=== PATIENT | male | born 1955 | race Caucasian/White ===

== ENCOUNTER 2020-05-26 10:28 | Observation (INO) ==
[2020-05-26] MEDS ORDERED: HEPARIN 5,000 UNIT/1 ML VIAL IV ONE (10:43)
[2020-05-26] MEDS ORDERED: ASPIRIN 325 MG TABLET PO STA (10:43)
[2020-05-26] MEDS ORDERED: MORPHINE 4 MG/1 ML VIAL ONE (10:48)
[2020-05-26] MEDS ORDERED: ONDANSETRON 4 MG/2 ML VIAL ONE (10:48)
[2020-05-26] MEDS ORDERED: ONDANSETRON 4 MG/2 ML VIAL IV STA (10:50)
[2020-05-26] MEDS ORDERED: MORPHINE 4 MG/1 ML VIAL IV STA (10:50)
[2020-05-26] MEDS ORDERED: TICAGRELOR 90 MG TABLET PO STA (10:51)
[2020-05-26 10:54] LABS: Basophils # 0.1 10*3/uL (0.0-0.2); Basophils % 0.8 % (0.0-0.8); Eosinophils # 0.2 10*3/uL (0.0-0.87); Eosinophils % 2.3 % (0.00-10.9); Hematocrit 44.7 VOL% (42.0-52.0); Hemoglobin 14.6 GM/DL (14.0-18.0); Immature Granulocytes % 0.3 %; Immature Granulocytes Absolute 0.02 #; Lymphocytes # 2.6 10*3/uL (1.4-4.0); Lymphocytes % 33.1 % (21.2-54.2); Mean Corpuscular HGB Conc 32.7 GM/DL (32-36); Mean Corpuscular Volume 94.1 FL (87-102); Mean Platelet Volume 8.6 FL (9.6-12.0); Neutrophils % 55.5 % (38.7-73.9); Platelet Count 238 T/CUMM (130-400); Red Blood Count 4.75 MC/CUMM (3.8-5.5); Red Cell Distribution Width 13.2 % (9.3-17.3); White Blood Count 7.9 T/CUMM (4-12)
[2020-05-26 11:09] LABS: PT Patient Result 10.3 SECS (9.8-11.9); Partial Thromboplastin Time 29.5 SECS (23.9-33.8)
[2020-05-26 11:12] LABS: Eosinophils 2 % (0-10); Lymphocytes 22 % (20-55); Platelet Estimate Adequate; Segmented Neutrophils 71 % (50-85); Total Cells Counted 100
[2020-05-26] MEDS ORDERED: ACETAMINOPHEN 325 MG TABLET PO PRN (11:21)
[2020-05-26] MEDS ORDERED: MAGNESIUM SULF RIDER 4 GM in PREMIX 1 EACH IV PRN (11:21)
[2020-05-26] MEDS ORDERED: BISACODYL 5 MG TABLET PO PRN (11:21)
[2020-05-26] MEDS ORDERED: MAGNESIUM SULF RIDER 2 GM in PREMIX 1 EACH IV PRN (11:21)
[2020-05-26] MEDS ORDERED: DOCUSATE SODIUM 100 MG CAPSULE PO PRN (11:21)
[2020-05-26] MEDS ORDERED: guaiFENesin/DM ER 600-30 MG TABLET PO PRN (11:21)
[2020-05-26] MEDS ORDERED: diphenhydrAMINE CAP 25 MG CAPSULE PO PRN (11:21)
[2020-05-26] MEDS ORDERED: ALUMINUM/MAGNES/SIMETH MAX STR 30 ML UDCUP PO PRN (11:21)
[2020-05-26] MEDS ORDERED: ONDANSETRON 4 MG/2 ML VIAL IV PRN (11:21)
[2020-05-26] MEDS ORDERED: PROMETHAZINE 25 MG TABLET PO PRN (11:21)
[2020-05-26] MEDS ORDERED: ZALEPLON 5 MG CAPSULE PO PRN (11:21)
[2020-05-26] MEDS ORDERED: hydrALAZINE 20 MG/1 ML VIAL IV PRN (11:21)
[2020-05-26] MEDS ORDERED: MORPHINE 4 MG/1 ML VIAL IV PRN (11:21)
[2020-05-26 11:28] LABS: Albumin 3.7 G/DL (3.4-5.0); Bilirubin,Total 0.9 MG/DL (0.2-1.0); Calcium 8.6 MG/DL (8.5-10.1); Osmolality,Calculated 275.7 MOS/KG (273-304); Total Protein 8.2 G/DL (6.4-8.3)
[2020-05-26] MEDS ORDERED: SODIUM CHLORIDE 0.45% 1,000 ML IV SCH (11:30)
[2020-05-26] MEDS: ALBUTEROL 2.5 MG/3 ML NEB RESP TX SCH ×2 (14:05→20:00)
[2020-05-26] MEDS ORDERED: carvediloL 3.125 MG TABLET PO SCH (21:00)
[2020-05-27] MEDS: ALBUTEROL 2.5 MG/3 ML NEB RESP TX SCH (02:05)
[2020-05-27 04:45] LABS: Basophils # 0.1 10*3/uL (0.0-0.2); Basophils % 0.8 % (0.0-0.8); Eosinophils # 0.2 10*3/uL (0.0-0.87); Eosinophils % 2.7 % (0.00-10.9); Hematocrit 40.1 VOL% (42.0-52.0); Hemoglobin 13.1 GM/DL (14.0-18.0); Immature Granulocytes % 0.2 %; Immature Granulocytes Absolute 0.01 #; Lymphocytes # 2.4 10*3/uL (1.4-4.0); Lymphocytes % 35.9 % (21.2-54.2); Mean Corpuscular HGB Conc 32.7 GM/DL (32-36); Mean Corpuscular Volume 92.6 FL (87-102); Mean Platelet Volume 8.6 FL (9.6-12.0); Monocytes % 7.9 % (1.7-12.7); Neutrophils % 52.5 % (38.7-73.9); Platelet Count 193 T/CUMM (130-400); Red Blood Count 4.33 MC/CUMM (3.8-5.5); Red Cell Distribution Width 13.2 % (9.3-17.3); White Blood Count 6.6 T/CUMM (4-12)
[2020-05-27 05:10] VITALS: BP 107/56
[2020-05-27 05:12] LABS: Blood Urea Nitrogen 14 MG/DL (7-18); Calcium 8.3 MG/DL (8.5-10.1); Carbon Dioxide 24 MMOL/L (21-32); Estimated Glom Filtration Rate 85 ML/MIN; Glucose 153 MG/DL (74-106); HDL Cholesterol 34 MG/DL (40-60); Osmolality,Calculated 284.3 MOS/KG (273-304); Potassium 3.8 MMOL/L (3.5-5.1); Risk Ratio 3.94; Sodium 141 MMOL/L (136-145); Triglycerides 108 MG/DL (2-150); Troponin I < 0.015 NG/ML (0.00-0.045); VLDL CHOLESTEROL 21.6 MG/DL
[2020-05-27 06:44] LABS: Barbiturates Screen,Urine Negative (Negative); Benzodiazepines Screen,Urine Negative (Negative); Cannabinoid Screen,Urine Negative (Negative); Opiate Screen,Urine Positive (Negative); Phencyclidine Screen,Urine Negative (Negative)
[2020-05-27] MEDS ORDERED: NON-FORMULARY MEDICATION (Omeprazole 20 mg Capsule,Delayed Release(Dr/Ec)) PO SCH (09:00)
[2020-05-27] MEDS ORDERED: LOSARTAN 50 MG TABLET PO SCH (09:00)
[2020-05-27] MEDS ORDERED: EZETIMIBE 10 MG TABLET PO SCH (09:00)
[2020-05-27] MEDS ORDERED: ASPIRIN EC 81 MG TABLET PO SCH (09:00)
[2020-05-27] MEDS ORDERED: PANTOPRAZOLE 40 MG TABLET PO SCH (09:00)
== END 2020-05-27 07:18 | disposition home or self-care (01) ==
LOC: N.ED 10:28 → N.EDINP 10:28 → N.TELEN 14:13
PROVIDERS: ADMIT Internal Medicine Cardiovascular Disease; ATTEND Internal Medicine Cardiovascular Disease